=== PATIENT | male | born 1955 | race Caucasian/White ===

== ENCOUNTER 2020-12-27 07:57 | Outpatient (CLI) | payer MEDICARE, SELFPAY ==
--- NOTE | 2020-12-27 08:07 | XR_ITS ---
WS: [id number] XR KUB [id number] REASON FOR EXAM: kidney stone FINDINGS: No right renal calculi. Multiple calculi overlying the lower pole of the left kidney correlating with findings on recent CT s can. Largest of these calculi is 5.5 mm in maximum diameter. No ureteral calculi identified. Multiple calcifications in the pelvis which appear to be phleboliths. No definite distal ureteral roxanne culi. No other significant abdominal finding. XR/XR KUB [id number] IMPRESSION: Left intrarenal calculi.
== END 2020-12-27 07:58 | disposition home or self-care (01) ==
PROVIDERS: PCP Nurse Practitioner Family; Visit Provider Urology
DX: N20.0 Calculus of kidney (principal)
CPT/HCPCS: 74018; 81003

== ENCOUNTER 2021-01-04 09:15 | Outpatient (CLI) | payer MEDICARE, SELFPAY ==
--- NOTE | 2021-01-04 10:30 | XRR_ITS ---
PROCEDURE INFORMATION: Exam: XR Abdomen Exam date and time: 01/04/2021 10:30 AM Age: 65 years old Clinical indication: Condition or disease; Kidney or ureter condition; Calculus (stone) in ureter; Additional info: Ureteral calculus TECHNIQUE: Imaging protocol: XR of the abdomen. Views: Frontal supine view of the abdomen. 1 View. COMPARISON: CR XR KUB [id number] 12/27/2020 8:20 AM FINDINGS: Gastrointestinal tract: Normal. No bowel dilation. Organs: 5 mm nonobstructing stone projecting over the lower pole of the left kidney. This is similar in appearance to prior study. Bones/joints: Visualized osseous structures are intact. XR/XR KUB [id number] IMPRESSION: Similar appearance of 5 mm nonobstructing stone in the lower pole of the left kidney.
== END 2021-01-04 09:16 | disposition home or self-care (01) ==
LOC: RAD 09:19
PROVIDERS: PCP Nurse Practitioner Family; Visit Provider Urology
DX: N20.1 Calculus of ureter (principal); N20.0 Calculus of kidney
CPT/HCPCS: 74018; 81003

== ENCOUNTER 2021-02-05 06:57 | Outpatient (CLI) | payer MEDICARE, SELFPAY ==
--- NOTE | 2021-02-05 07:00 | XRR_ITS ---
PROCEDURE INFORMATION: Exam: XR Abdomen Exam date and time: 02/05/2021 7:00 AM Age: 65 years old Clinical indication: Condition or disease; Kidney or ureter condition; Calculus (stone) in kidney and calculus (stone) in ureter; Prior surgery; Additional info: Ureteral calculus TECHNIQUE: Imaging protocol: XR of the abdomen. Views: Frontal supine view of the abdomen. 1 View. Total images: 2 COMPARISON: CR XR KUB [id number] 01/04/2021 9:31 AM FINDINGS: Gastrointestinal tract: Bowel gas pattern is nondistended and nonobstructive. Organs: 6 mm somewhat rounded and 8 mm linear calcifications projecting in the area of the inferior pole of the left kidney and corresponding to previously noted renal calculi as seen on prior CT. Mildly irregular 7 mm elongated calcification in the left pelvis is felt to correspond to previous distal left ureteral calculus. Vasculature: Incidental phleboliths noted. Bones/joints: Unremarkable. XR/XR KUB [id number] IMPRESSION: 1. 6 mm somewhat rounded and 8 mm linear calcifications projecting in the area of the inferior pole of the left kidney and corresponding to previously noted renal calculi as seen on prior CT. 2. Mildly irregular 7 mm elongated calcification in the left pelvis is felt to correspond to previous distal left ureteral calculus. 3. Normal bowel gas pattern
== END 2021-02-05 06:58 | disposition home or self-care (01) ==
LOC: RAD 07:01
PROVIDERS: PCP Nurse Practitioner Family; Visit Provider Urology
DX: N20.1 Calculus of ureter (principal); Z20.822 Contact with and (suspected) exposure to COVID-19
CPT/HCPCS: 74018; 81003; 87635

== ENCOUNTER 2021-02-07 09:56 | Day surgery (SDC) | payer MEDICARE, SELFPAY ==
[2021-02-06 15:50] VITALS: BMI 26.6
--- NOTE | 2021-02-07 | SCC_ITS ---
Procedure Done: 1. Cystoscopy, left retrograde ureteropyelogram 2. Left ureteroscopy, laser, stent 24.8 seconds of fluoroscopic guidance, for a cumulative dose of 5.13 mGy, was provided to Dr. Boswell by the radiology department. C-arm images of the abdomen were saved for the patient's permanent record. [facility]
--- NOTE | 2021-02-07 10:33 | SC_ITS ---
WS: [id number] C-arm fluoroscopy for left ureteral stent placement, 02/07/2021 Clinical Data: Left ureteroscopy Comparison: None. Findings: A left ureteral stent has been placed in the kidney by Dr. Boswell. SC/C-arm [place] for Urology Impression: Left ureteral stent placement.
[2021-02-07 10:50] VITALS: BP 152/87; PULSE 71; RESP 18; TEMP 36.1; O2SAT 99
[2021-02-07] MEDS: sodium chloride 0.9% 1,000 ML 30 ML IV (11:15)
--- NOTE | 2021-02-07 11:42 | ANES.PREANE2 ---
Pre-Anesthetic Assessment Pre-Anesthetic Assessment: Height/Weight: Height 1.75 m Weight 81.647 kg Temp Pulse Resp BP Pulse Ox 97 F L 71 18 152/87 99 02/07/21 10:50 02/07/21 10:50 02/07/21 10:50 02/07/21 10:50 02/07/21 10:50 Preop Diagnosis: Refractory left distal ureteral stone Proposed Procedure: Operation Date: 02/07/21 12:00 Proposed Procedures p Cystoscopy 74242 89515 N23 N20.1(Not Applicable) - Terrance Boswell MD s Retrograde Pyelogram(Not Applicable) - MD melissa Mckeon Ureteroscopy(Not Applicable) - MD melissa Mckeon Laser Lithotripsy(Not Applicable) - Terrance Boswell MD s Ureteral Stent Placement(Not Applicable) - Terrance Boswell MD Familial anesthetic complications: None Was Beta Ovi taken within 24 hours: N/A Was Clonidine taken within 24 hours: N/A Last intake: Intake Last Liquid Date 02/07/21 Last Liquid Time 05:00 Last Solid Date 02/06/21 Last Solid Time 20:00 Social: Social History: No alcohol and No tobacco Exam: Pre-Anes Outpt Exam: alert, oriented x 3, clear to auscultation bilaterally and regular rate & rhythm Airway: Cervical ROM: WNL MP: 2 Dentition: False CV/HEM: CV/HEM: HTN Anesthetic Plan: ASA status: 2 Anesthesia: General Risk of > 500 ml blood loss (7ml/kg in children): No Meds/Allergies Current Medications: Current Medications Generic Name Dose Route Start Last Admin Trade Name Freq PRN Reason Stop Dose Admin Sodium Chloride 1,000 mls @ 30 ml s/hr 02/07/21 10:45 02/07/21 11:15 Sodium Chloride 0.9% IV 02/08/21 10:44 30 mls/hr .Q24H OLIMPIA Administration PFSH Anesthesia PFSH: Surgical History History of surgery on arm Family History Father , unknown age of passing Psychiatric illness Mother , IN HER LATE 80'S, UNKNOWN REASON No problems noted. Social History Alcohol intake: former Marital status: Current occupational status: employed History of recent travel: No Data Anesthesia Cardiac Studies: No Data to Display
--- NOTE | 2021-02-07 11:47 | P.HPUD_ITS ---
Surgery/Procedure H&P Update DATE OF PROCEDURE: February 07, 2021 DATE H&P PERFORMED: 02/05/21 H&P UPDATE INFORMATION: I have reviewed H&P completed within last 30 days, I have examined patient prior to procedure, No changes to prior documentation and H&P is in [facility] [place] date indicated CHANGES TO PREVIOUS DOCUMENTATION: Has been diligent about straining and observing his voiding and there has been no evidence of spontaneous passage of the stone. PREOP DIAGNOSIS: Refractory left distal ureteral stone PLANNED PROCEDURE: Operation Date: 02/07/21 12:00 Proposed Procedures p Cystoscopy [id number] 20842 N23 N20.1(Not Applicable) - Terrance Boswell MD s Retrograde Pyelogram(Not Applicable) - MD melissa Mckeon Ureteroscopy(Not Applicable) - MD melissa Mckeon Laser Lithotripsy(Not Applicable) - MD melissa Mckeon Ureteral Stent Placement(Not Applicable) - Terrance Boswell MD
--- NOTE | 2021-02-07 11:47 | PM.OP ---
Operative Report Date of procedure: February 07, 2021 Pre-op Diagnosis: Refractory left distal ureteral stone Post-op diagnosis: same Procedure Done: 1. Cystoscopy, left retrograde ureteropyelogram 2. Left ureteroscopy, laser, stent Implants: Left ureteral stent Anesthesia: General Estimated blood loss: Minimal Complications: None Findings: Stone in the expected position Condition: stable Disposition: PACU Brief History: Mr. Marie is a very pleasant 65-year-old white male with a history of left ureteral calculus initially diagnosed in the proximal ureter with progression down to the distal ureter but no further progression after that with a prolonged conservative trial. He was having no significant symptoms but because the stone had stopped in its distal progression and observe for such a long. It was ultimately decided to proceed with intervention. Procedure: After routine preoperative evaluation examination and obtaining of informed consent he was taken to the operating suite on 02/07/2021 where general anesthesia was administered without difficulty after appropriate timeout was performed, SCDs confirmed to be functioning, preoperative antibiotics administered, beta-naz protocol confirmed. Prepped and draped in usual sterile fashion in dorsolithotomy position paying careful attention to avoiding pressure points. 21 Maldivian cystoscope with 30 degree lens was introduced into urethra meatus and advanced into the bladder under videoscopy. Bladder was systematically examined. No stone was seen. An 8 Maldivian cone-tip catheter was intubated to the left ureteral orifice for LEFT RETROGRADE URETEROPYELOGRAM which demonstrated: Normal ureter distal to the filling defect consistent with a stone. Proximal to the stone was mild dilation. No other filling defects or identified Flexible tip guidewire was then advanced up the ureter bypassing the stone. The distal ureter was dilated with a 15 Maldivian 4 cm balloon. The wire was secured to the drapes as a safety wire and a 7 Maldivian offset semirigid ureteroscope was advanced up the left ureter next to the guidewire and the stone was encountered in its expected position, fragmented with a 365 thulium superpulse laser fiber into small enough pieces that were flushed and basketed from the ureter easily. On final inspection the area where the stone had been located was fairly inflamed and for that reason it was decided to leave the stent indwelling. A cystoscope was then backloaded over the guidewire and a 6 Maldivian by 28 cm double-pigtail stent was advanced over the guidewire through the cystoscope into appropriate position as confirmed via fluoroscopy and cystoscopy. There were a lot of fragments in the bladder that were flushed free and sent for pathologic evaluation. He tolerated procedure well without complications and was awakened in the operating room and returned to the recovery room in stable condition. PLANS: 1. Anticipate discharge from outpatient surgery 2. Maintain ureteral stent for approximately a week and follow-up with KUB for possible cystoscopy and stent removal week of the .
[2021-02-07] MEDS: levofloxacin-dextrose 5 % 500 MG/100 ML PREMIX 100 MG IV (11:49)
[2021-02-07 12:35] VITALS: BP 127/76; PULSE 65; RESP 12; TEMP 36.1; O2SAT 96
[2021-02-07 12:40] VITALS: BP 120/69; PULSE 62; RESP 16; O2SAT 95
[2021-02-07 12:45] VITALS: BP 114/68; PULSE 62; RESP 14; TEMP 36.5; O2SAT 96
[2021-02-07 12:55] VITALS: BP 108/73; PULSE 62; RESP 18; TEMP 36.1; O2SAT 97
[2021-02-07 13:14] VITALS: BP 137/99; PULSE 60; RESP 16; TEMP 36.1; O2SAT 97
--- NOTE | 2021-02-07 15:25 | ANE.PACU2 ---
Inpatient post-anesthesia follow up: Airway intact: Yes Vital signs: Temperature 97 F Pulse Rate 60 Respiratory Rate 16 Blood Pressure 137/99 Pulse Oximetry 97 Oxygen Delivery Me thod Room Air Oxygen Flow Rate Fraction of Inspir ed Oxygen Hydration adequate: Yes Nausea and vomiting: No Pain level: 2 Mental status: Baseline
[2021-02-13 08:48] LABS: Stone Source LEFT URETER
== END 2021-02-07 13:35 | disposition home or self-care (01) ==
PROVIDERS: PCP Nurse Practitioner Family; Visit Provider Urology
PROC: 0TJB8ZZ Inspection of Bladder, Via Natural or Artificial Opening Endoscopic (ICD-10-PCS; CPT 52000; principal; 2021-02-07 12:00)
PROC: (CPT 74420; 2021-02-07 12:00)
PROC: 0TJ98ZZ Inspection of Ureter, Via Natural or Artificial Opening Endoscopic (ICD-10-PCS; CPT 52351; 2021-02-07 12:00)
PROC: (CPT 52356; 2021-02-07 12:00)
PROC: (CPT 50605; 2021-02-07 12:00)
DX: N20.1 Calculus of ureter (principal); I10 Essential (primary) hypertension
CPT/HCPCS: 52356; 76000; 82365; 88300; C2625; J1100; J1956; J2405; J2704; J3010; J3490; J7030

== ENCOUNTER 2021-02-22 07:16 | Outpatient (CLI) | payer MEDICARE, SELFPAY ==
--- NOTE | 2021-02-22 07:23 | XR_ITS ---
WS: [id number] KUB, AP view, 02/22/2021 Clinical Data: URETERAL CALCULUS Comparison: KUB, 02/05/2021. Findings: There is a left ureteral stent in good position. The calcifications overlying the inferior pole of th e left kidney have not changed. Numerous phleboliths are seen. The possible left UVJ calculus may be obscured by the stent or may have passed into the bladder. XR/XR KUB [id number] Impression: 1. Left ureteral stent. 2. No change in left renal calcifications.
== END 2021-02-22 07:17 | disposition home or self-care (01) ==
LOC: RAD 07:21
PROVIDERS: PCP Nurse Practitioner Family; Visit Provider Urology
DX: N20.1 Calculus of ureter (principal); N20.0 Calculus of kidney; Z96.0 Presence of urogenital implants
CPT/HCPCS: 74018; 81003

== ENCOUNTER → 2021-05-07 14:02 | Outpatient (BNVA) | payer MEDICARE, SELFPAY | PROVIDERS: PCP Nurse Practitioner Family; Visit Provider Urology | DX: R30.0 Dysuria (principal) | CPT/HCPCS: 81003; 87086 ==

== ENCOUNTER 2021-10-01 07:03 | Outpatient (CLI) | payer MEDICARE, SELFPAY ==
--- NOTE | 2021-10-01 07:00 | XRR_ITS ---
PROCEDURE INFORMATION: Exam: XR Abdomen Exam date and time: 10/01/2021 7:06 AM Age: 66 years old Clinical indication: Condition or disease; Kidney or ureter condition; Calculus (stone) in ureter; Additional info: Left ureteral calculus, kub @ ozh on 10/01/21 @ 7. Appt to follow TECHNIQUE: Imaging protocol: XR of the abdomen. Views: Frontal supine view of the abdomen. 1 View. COMPARISON: CR XR KUB [id number] 02/22/2021 7:36 AM FINDINGS: Gastrointestinal tract: Mild constipation. Organs: Two left kidney lower pole calculi suspected measuring up to 5.4 mm similar to prior exam. Vasculature: Calcified phleboliths over the pelvic inlet. Bones/joints: Unremarkable. XR/XR KUB [id number] IMPRESSION: 1. Two left kidney lower pole calculi suspected measuring up to 5.4 mm similar to prior exam. 2. Calcified phleboliths over the pelvic inlet. 3. Mild constipation.
== END 2021-10-01 07:04 | disposition home or self-care (01) ==
LOC: RAD 07:05
PROVIDERS: PCP Nurse Practitioner Family; Visit Provider Urology
DX: N20.1 Calculus of ureter (principal); N20.9 Urinary calculus, unspecified; N41.9 Inflammatory disease of prostate, unspecified
CPT/HCPCS: 74018; 99213

== ENCOUNTER → 2021-11-19 07:47 | Outpatient (BNVA) | payer MEDICARE, SELFPAY | PROVIDERS: PCP Nurse Practitioner Family; Visit Provider Otolaryngology | DX: B36.9 Superficial mycosis, unspecified (principal); H62.43 Otitis externa in other diseases classified elsewhere, bilateral; H91.93 Unspecified hearing loss, bilateral; H93.13 Tinnitus, bilateral; Z87.891 Personal history of nicotine dependence | CPT/HCPCS: 99203 ==

== ENCOUNTER → 2021-12-04 08:40 | Outpatient (BNVA) | payer MEDICARE, SELFPAY | PROVIDERS: PCP Nurse Practitioner Family; Visit Provider Otolaryngology | DX: B36.9 Superficial mycosis, unspecified (principal); H62.43 Otitis externa in other diseases classified elsewhere, bilateral; H91.93 Unspecified hearing loss, bilateral; H93.13 Tinnitus, bilateral; Z87.891 Personal history of nicotine dependence | CPT/HCPCS: 99213 ==

== ENCOUNTER → 2022-02-04 08:27 | Outpatient (BNVA) | payer MEDICARE, SELFPAY | PROVIDERS: PCP Nurse Practitioner Family; Visit Provider Otolaryngology | DX: H69.83 Other specified disorders of Eustachian tube, bilateral (principal); H91.93 Unspecified hearing loss, bilateral; H93.13 Tinnitus, bilateral; Z87.891 Personal history of nicotine dependence | CPT/HCPCS: 99213 ==

== ENCOUNTER 2022-04-02 07:08 | Outpatient (CLI) | payer MEDICARE, SELFPAY ==
--- NOTE | 2022-04-02 07:15 | XR_ITS ---
WS: [id number] KUB, AP view, 04/02/2022 Clinical Data: Urolithiasis Comparison: KUB, 10/01/2021 Findings: The left renal calcifications in the lower pole remain the same. Fecal material obscures detail over both kidneys. No abnormal intraabdominal masses are seen. There is no dilatated small bowel or evidence of obstruct ion. There are phleboliths in the true pelvis. XR/XR KUB [id number] Impression: No change in left renal calcifications.
== END 2022-04-02 07:09 | disposition home or self-care (01) ==
LOC: RAD 07:10
PROVIDERS: PCP Nurse Practitioner Family; Visit Provider Urology
DX: N20.9 Urinary calculus, unspecified (principal); N41.9 Inflammatory disease of prostate, unspecified
CPT/HCPCS: 51798; 74018; 81003; 99213

== ENCOUNTER → 2023-08-25 15:19 | Outpatient (BNVA) | payer MEDICARE, SELFPAY | PROVIDERS: PCP Nurse Practitioner Family; Visit Provider Otolaryngology | DX: H90.3 Sensorineural hearing loss, bilateral (principal); H93.13 Tinnitus, bilateral; M95.0 Acquired deformity of nose | CPT/HCPCS: 99213; 99214 ==

== ENCOUNTER 2024-01-22 10:19 | Emergency (ER) | payer MEDICARE, SELFPAY ==
--- NOTE | 2024-01-22 10:24 | ECG_ITS ---
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 Measurements Intervals Holt Rate: 64 P: 43 NJ: 190 QRS: -26 QRSD: 112 T: 2 QT: 428 QTc: 444 Interpretive Statements SINUS RHYTHM BORDERLINE LEFT AXIS DEVIATION [QRS AXIS < -20] MODERATE INTRAVENTRICULAR CONDUCTION DELAY [110+ ms QRS DURATION] No previous ECG available for comparison Electronically Signed On 01-22-2024 11:28:11 CDT by Farooq Braga M.D. [email or web address]
--- NOTE | 2024-01-22 10:25 | CT_ITS ---
WS: [id number] CT FACIAL BONES HISTORY: trauma TECHNIQUE: Images obtained from the supraorbital location through the mandible. Soft tissue and bone windows are reviewed. Coronal and sagittal reformats have also been submitted. DLP: 2889.[address] scans at [facility] use at least one of these dose optimization techniques: automated e xposure control; mA and/or kV adjustment per patient size (includes targeted exams where dose is matc hed to clinical indication); or iterative reconstruction. COMPARISON: None available. Scalp hematoma with fat stranding centered over the LEFT frontal bone. The hematoma extends inferiorl y over the orbit and globe but remains preseptal. Frontal bone remains intact. No skull fracture. Increased and mixed attenuation material in the LEFT frontal, ethmoid and maxillary sinuses. This is consistent with acute blood products from the recent trauma. There is a fracture involving the LEFT l gauri papyracea. There is a blowout fracture involving the floor of the LEFT orbit. Orbital fracture is displaced inferiorly by 9.8 mm. The gap in the orbital floor is 17 mm. There is orbital fat hernia ting through the defect into the maxillary sinus. The inferior rectus muscle is at the fracture gap a nd is very close to being entrapped. There is a fracture fragment from the medial lamina papyracea cl osely associated with the inferior rectus muscle. Additional fracture involving the posterior wall LE FT maxillary sinus. Zygomatic arches are intact. No nasal bone fracture. No additional fractures are identified. CT/CT facial bones wo con* [id number] IMPRESSION: 1. Blowout fracture LEFT orbit. Orbital floor fracture with a diameter of 17 m m displaced inferiorly by 9.8 mm. There is herniating orbital fat through the f racture into the maxillary sinus. 2. Inferior rectus muscle is at the fracture gap with a bony fragment very evan sely associated with the muscle. 3. Comminuted fractures involving the LEFT lamina papyracea. 4. Additional fracture involving the posterior LEFT maxillary wall. 5. Acute blood products in the LEFT frontal, ethmoid and maxillary sinuses. 6. No frontal bone skull fracture identified. 7. LEFT frontal scalp hematoma with greater blood products extending over the LEFT orbit and globe. No postseptal hemorrhage.
--- NOTE | 2024-01-22 10:25 | XR_ITS ---
WS: [id number] Portable AP supine chest, 01/22/2024 Clinical Data: dyspnea/cough Comparison: None. Findings: No nodules, masses or effusions are seen. The heart is normal. The pulmonary vascularity is not increased. No pneumonia or pneumothorax is seen. The aortic arch and descending thoracic aorta s how tortuosity. XR/XR chest 1V portable [id number] Impression: Atherosclerosis.
--- NOTE | 2024-01-22 10:25 | CT_ITS ---
WS: [id number] CT CHEST, ABDOMEN AND PELVIS WITH CONTRAST HISTORY: trauma TECHNIQUE: Contiguous 5 mm axial imaging performed through the chest, abdomen and pelvis with IV cont rast, oral contrast has 9 been provided. Coronal and sagittal reformats chest. Coronal and sagittal r eformats through the abdomen and pelvis. All CT scans at [facility] use at least one of these dose optimization techniques: automated exposure control; mA and/or kV adjustment per patient size ( includes targeted exams where dose is matched to clinical indication); or iterative reconstruction. CONTRAST: Omnipaque 350; 100 mL IV. DLP: 1073.91 mGy.cm COMPARISON: 12/24/[address]: No pulmonary laceration or mass. No pneumothorax. Mild atherosclerosis aorta. Aorta appears intact. No periaortic hematoma or laceration. Normal size pulmonary artery. Normal size heart with n o pericardial or pleural effusions. No adenopathy. No mediastinal air. No chest wall hematoma or mass . Small hiatal hernia. No clavicle or rib fractures. Normal thoracic alignment. Abdomen CT: Normal size liver and spleen. Several scattered hepatic cysts. Normal portal vein. Normal gallbladder. LEFT adrenal nodule 1.5 x 1.5 cm with slight increase in size since 2020. There is an a dditional smaller LEFT adrenal nodule measuring 1.0 x 0.8 cm. Bilateral parapelvic cysts. No renal ob struction. Nonobstructing calcifications lower pole LEFT kidney. Mild atherosclerosis aorta. There is a low-attenuation mass in the body of the pancreas measuring 2.1 x 1.4 cm. This mass may hav e been present on the prior CTs from 2020 but without contrast very difficult to identify. No pancrea tic duct dilatation. No ascites or adenopathy. Normally distended stomach and small bowel. Normal appendix. Moderate diffu se diverticular disease. Pelvic CT: Normally distended urinary bladder. Prostate hypertrophy. No lumbar spine fracture identified. No pelvic fracture. No soft tissue hematoma. CT/CT chest abdpel w/*[id number] IMPRESSION: 1. No pneumothorax or pulmonary laceration. 2. No mesenteric injury. 3. Mildly atherosclerotic changes within the thoracic and abdominal aorta with no injury. 4. Long-term stability of bilateral adrenal nodules. Probably adenomas. 5. Low-attenuation mass in the body the pancreas 2.1 x 1.4 cm. This may've bee n present in 2020 but not as well visualized without IV contrast. Recommend MRI pancreas with and without contrast or multiphase pancreatic CT for additional evaluation. 6. No spine fracture identified.
--- NOTE | 2024-01-22 10:25 | CT_ITS ---
WS: [id number] CT CERVICAL SPINE HISTORY: trauma TECHNIQUE: Contiguous 2.0 mm axial imaging performed through the entire cervical spine. Sagittal and coronal reformats also performed. All CT scans at [facility] use at least one of these dose o ptimization techniques: automated exposure control; mA and/or kV adjustment per patient size (include s targeted exams where dose is matched to clinical indication); or iterative reconstruction. DLP: 2889.69 mGy.cm COMPARISON: None available. Mild LEFT curvature cervical spine. Craniocervical junction appears appropriate. Narrowing of the pre dental space. Lateral masses of C1 and C2 are aligned. Facet joints are narrowed with hypertrophic os teophytes. No malalignment or displacement and no fracture. Very slight anterolisthesis of C6. C2-C3: Normal. C3-C4: Bilateral facet arthritis. Central disc protrusion and moderate foraminal stenosis. C4-C5: Severe RIGHT facet joint arthropathy. Severe RIGHT foraminal stenosis. C5-C6: Osteophytic ridging with bilateral facet joint arthropathy. Mild central and foraminal stenosi s. C6-C7: Mild osteophytic ridging and facet arthritis. Mild RIGHT and moderate LEFT foraminal stenosis and broad-based disc protrusion. C7-T1: Normal. Soft tissues are normal. Lung apices are clear. CT/CT cervical spin wo con* [id number] IMPRESSION: 1. No acute cervical spine fracture. 2. Facet joint arthritis and degenerative scoliosis. 3. No high-grade central stenosis.
--- NOTE | 2024-01-22 10:25 | CT_ITS ---
WS: [id number] CT HEAD NONCONTRAST HISTORY: trauma TECHNIQUE: Contiguous axial imaging performed through the brain in 2.5 mm imaging. Bone and soft tiss ue windows. Sagittal and coronal reformats reviewed. All CT scans at [facility] use at least one of these dose optimization techniques: automated exposure control; mA and/or kV adjustment per pa tient size (includes targeted exams where dose is matched to clinical indication); or iterative recon struction. DLP: 2889.69 mGy.cm COMPARISON: None available. No acute intracranial hemorrhage, midline shift or mass effect. Mild atrophy and small vessel ischemic disease. No prior infarct. Ventricles: Lateral ventricles are moderately enlarged. No intraventricular blood. No inferior displacement of the cerebellar tonsils. Paranasal sinuses: There is dense consolidation with air in the LEFT maxillary and LEFT frontal sinus . Medial wall of the LEFT maxillary sinus is fractured. This will be better evaluated on the facial b one CT that is being performed on the same day. Mastoid air cells: Well pneumatized. Calvarium and scalp: No skull fracture. LEFT frontal scalp hematoma. Hematoma continues over the LEFT orbit and globe and the zygomatic arch. CT/CT head wo con* [id number] IMPRESSION: 1. No acute intracranial hemorrhage or edema. 2. Mild ventriculomegaly. Correlate for normal pressure hydrocephalus. 3. LEFT frontal scalp hematoma with hematoma extending over the LEFT orbit and globe and zygomatic arch from the recent trauma. 4. Fractures involving the medial wall of the LEFT maxillary sinus. Additional acute blood noted in the LEFT maxillary, LEFT ethmoid and frontal sinus. Facia l bones will be better evaluated on the facial bone CT to be performed at the s tiara time.
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
[2024-01-22 10:36] VITALS: BP 152/83; PULSE 62; RESP 18; TEMP 36.9; O2SAT 95
[2024-01-22 10:37] LABS: Basophils % 0.1 %; Eosinophils % 0.1 %; Hematocrit 44.1 % (37-53); Lymphocytes # 0.7 10^3/uL (0.8-4.8); Lymphocytes % 7.7 %; Mean Corpuscular HGB Conc 33.6 g/dL (30-55); Mean Corpuscular Hemoglobin 28.8 pg (27-33); Mean Platelet Volume 11.1 fL (7.4-10.4); Monocytes # 0.4 10^3/uL (0.2-0.9); Monocytes % 4.3 %; Neutrophils # 7.98 10^3/uL (1.8-7.7); Neutrophils % 87.4 %; Nucleated Red Blood Cells % 0 %; Platelet Count 158 10^3/cmm (157-399); Red Blood Count 5.13 10^6/uL (3.85-5.65); Red Cell Distribution Width 12.7 % (12.1-15.1); White Blood Count 9.13 10^3/uL (3.29-11.43)
[2024-01-22 10:54] LABS: Alanine Aminotransferase 16 U/L (0-41); Albumin Level 4.1 g/dL (3.5-5.2); Alkaline Phosphatase 72 U/L (40-130); Anion Gap 17.1 (5-19); Aspartate Amino Transferase 21 U/L (0-40); Blood Urea Nitrogen 15 mg/dL (8-23); Calcium 8.7 mg/dL (8.5-10.5); Carbon Dioxide 24 mmol/L (22-29); Chloride 105 mmol/L (98-107); Globulin 2.4 g/dL (1.3-4.6); Glomerular Filtration Rate 73.9 mL/min (90-130); Glucose 126 mg/dL (65-115); Osmolality Calculated 298 mOsm/kg (285-295); Potassium 3.1 mmol/L (3.5-5.1); Sodium 143 mmol/L (136-145); Total Bilirubin 0.4 mg/dL (0.15-1.2); Total Protein 6.5 g/dL (6.6-8.7)
[2024-01-22] MEDS: iohexol 350 mg/mL 500 mL Btl (per mL) IV (10:55)
[2024-01-22 10:56] LABS: Alcohol Level < 10 mg/dL (0-10)
[2024-01-22] MEDS: ceFAZolin 1,000 mg SDV 1000 MG IVP (11:22)
[2024-01-22 12:35] VITALS: BP 150/86; O2SAT 99
[2024-01-22 13:49] VITALS: PULSE 56; RESP 18; O2SAT 98
--- NOTE | 2024-01-22 13:56 | XR_ITS ---
WS: [id number] Right hand, 3 views, 01/22/2024 Clinical Data: trauma Comparison: None. Findings: No fractures or dislocations are seen. The soft tissues are unremarkable. The joint space s are normal There are small periarticular cysts throughout the joints of the hand. XR/XR hand RT min 3V* [id number] Impression: Negative right hand.
--- NOTE | 2024-01-22 13:56 | XR_ITS ---
WS: [id number] Left hand, 3 views, 01/22/2024 Clinical Data: trauma Comparison: None. Findings: No fractures or dislocations are seen. The soft tissues are unremarkable. The joint spaces are normal There is a pulse oximeter on the tip of the left second finger. XR/XR hand LT min 3V* [id number] Impression: Negative left hand.
[2024-01-22 14:28] VITALS: BP 142/83
== END 2024-01-22 15:22 | disposition home or self-care (01) ==
PROVIDERS: Emergency Provider Family Medicine; PCP Nurse Practitioner Family
DX: S02.32XA Fracture of orbital floor, left side, initial encounter for closed fracture (principal); S81.812A Laceration without foreign body, left lower leg, initial encounter; S61.412A Laceration without foreign body of left hand, initial encounter; S61.411A Laceration without foreign body of right hand, initial encounter; S01.412A Laceration without foreign body of left cheek and temporomandibular area, initial encounter; S00.03XA Contusion of scalp, initial encounter; Z87.891 Personal history of nicotine dependence; V95.1 Ultralight, microlight or powered-glider accident injuring occupant
CPT/HCPCS: 12004; 12011; 70450; 70486; 71045; 71260; 72125; 73130; 74177; 80053; 80307; 85025; 86850; 86900; 93005; 96374; 99285; J0690; Q9967